=== PATIENT | male | born 1955 | race American Indian/Alaskan Native ===

== ENCOUNTER 2019-08-14 09:55 | Emergency (ER) | payer OTHER ==
[2019-08-14 10:03] VITALS: BP 134/81
[2019-08-14] MEDS ORDERED: IBUPROFEN 800 MG TAB PO ONE (12:08)
[2019-08-14] MEDS ORDERED: predniSONE 20 MG TAB PO ONE (12:08)
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
== END 2019-08-14 12:25 | disposition home or self-care (01) ==
LOC: ED 09:55
DX: M54.2 Cervicalgia (principal); M54.9 Dorsalgia, unspecified; Z79.899 Other long term (current) drug therapy; V59.59XA Passenger in pick-up truck or van injured in collision with other motor vehicles in traffic accident, initial encounter; Y93.89 Activity, other specified; Y92.410 Unspecified street and highway as the place of occurrence of the external cause; Y99.8 Other external cause status
CPT/HCPCS: 99283; J7512

== ENCOUNTER 2020-06-12 02:42 | Emergency (ER) | payer MEDICARE, OTHER ==
[2020-06-12 03:10] VITALS: BP 140/90
== END 2020-06-12 07:01 | disposition left against medical advice (07) ==
LOC: ED 02:42
DX: S80.812A Abrasion, left lower leg, initial encounter (principal); S80.811A Abrasion, right lower leg, initial encounter; Z53.21 Procedure and treatment not carried out due to patient leaving prior to being seen by health care provider; W19.XXXA Unspecified fall, initial encounter; Y93.89 Activity, other specified; Y92.89 Other specified places as the place of occurrence of the external cause; Y99.8 Other external cause status

== ENCOUNTER 2022-05-18 14:41 | Emergency (ER) | payer OTHER ==
[2022-05-18] MEDS ORDERED: ONDANSETRON 4 MG/2 ML INJ IV ONE (16:00)
[2022-05-18] MEDS ORDERED: MORPHINE 4 MG/1 ML INJ IV ONE (16:00)
--- NOTE | 2022-05-18 16:32 | XRay Report ---
ABDOMEN 1 VIEW(S) INDICATION / CLINICAL INFORMATION: abdominal pain/ r/o constipation. COMPARISON: None available. FINDINGS: TUBES / LINES: None. BOWEL GAS PATTERN/EXTRALUMINAL GAS: No acute findings. Moderate constipation. No pneumatosis or secon lorie signs of free air. ADDITIONAL FINDINGS: No significant additional findings. IMPRESSION: 1. No acute findings. Moderate constipation. Signer Name: Tone Haynes MD Signed: 05/18/2022 4:27 PM Workstation Name: [id number]
[2022-05-18] MEDS ORDERED: MAGNESIUM CITRATE 300 ML ORAL LIQD PO ONE (16:40)
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
[2022-05-18 18:19] VITALS: BP 156/87
== END 2022-05-18 18:35 | disposition home or self-care (01) ==
LOC: ED 14:41
DX: K59.00 Constipation, unspecified (principal); F10.20 Alcohol dependence, uncomplicated
CPT/HCPCS: 74018; 96374; 96375; 99284; J2270; J2405; 99283